=== PATIENT | female | born 1960 | race Caucasian/White ===

== ENCOUNTER 2017-08-29 09:26 | Emergency (ER) | payer BC ==
[2017-08-29 10:48] VITALS: BP 137/89
--- NOTE | 2017-08-29 11:06 | ED ---
Throat Pain/Nasal Congestion - HPI Summary HPI Summary: 56 yr old female with runny nose, cough, sinus congestion sore throat for three days. Denies fever and chills. She has a cough that has started that is dry as well. denies smoking. No other complaints. - History of Current Complaint Chief Complaint: UCGeneralIllness Time Seen by Provider: 08/29/17 10:48 - Allergies/Home Medications Allergies/Adverse Reactions: Allergies Allergy/AdvReac Type Severity Reaction Status Date / Time No Known Allergies Allergy Verified 08/29/17 10:48 Home Medications: Home Medications Cholecalciferol [Vitamin D] 08/29/17 [History] Metoprolol Tartrate TAB* [Lopressor TAB*] 08/29/17 [History] PMH/Surg Hx/FS Hx/Imm Hx - Surgical History Surgery Procedure, Year, and Place: tubaligation Infectious Disease History: No Infectious Disease History: Denies: History Other Infectious Disease, Traveled Outside the [place] in Last 30 Days - Family History Known Family History: Positive: None - Social History Alcohol Use: None Substance Use Type: Reports: None Smoking Status (MU): Never Smoked Tobacco Review of Systems Positive: Sore Throat, Nasal Discharge Positive: Cough All Other Systems Reviewed And Are Negative: Yes Physical Exam Triage Information Reviewed: Yes Vital Signs On Initial Exam: Initial Vitals Temp Pulse Resp BP Pulse Ox 98.2 F 69 18 137/89 99 08/29/17 10:43 08/29/17 10:43 08/29/17 10:43 08/29/17 10:43 08/29/17 10:43 Vital Signs Reviewed: Yes Appearance: Positive: Well-Appearing, No Pain Distress Skin: Positive: Warm, Skin Color Reflects Adequate Perfusion Eyes: Positive: EOMI ENT: Positive: Pharynx normal, Nasal congestion. Negative: TMs normal - cerumen Neck: Positive: Nontender Respiratory/Lung Sounds: Positive: Clear to Auscultation, Breath Sounds Present Cardiovascular: Positive: RRR. Negative: Murmur Abdomen Description: Positive: Nontender Musculoskeletal: Positive: Strength/ROM Intact Neurological: Positive: Sensory/Motor Intact, Alert, Oriented to Person Place, Time, CN Intact II-III Psychiatric: Positive: Normal - [place] Coma Scale Best Eye Response: 4 - Spontaneous Best Motor Response: 6 - Obeys Commands Best Verbal Response: 5 - Oriented Diagnostics - Vital Signs Vital Signs Temp Pulse Resp BP Pulse Ox 08/29/17 10:43 98.2 F 69 18 137/89 99 - Laboratory Lab Statement: Any lab studies that have been ordered have been reviewed, and results considered in the medical decision making process. EENT Course/Dx - Diagnoses Provider Diagnoses: Upper respiratory infection Discharge - Discharge Plan Condition: Good Disposition: HOME Patient Education Materials: Upper Respiratory Infection (ED), Hypertension (ED ) Referrals: Suhail Talavera MD [Primary Care Provider] - 2 Days
== END 2017-08-29 11:21 | disposition home or self-care (01) ==
LOC: UCCORT 09:26
DX: J06.9 Acute upper respiratory infection, unspecified (principal); J02.9 Acute pharyngitis, unspecified
CPT/HCPCS: 87651; 99202; G0463

== ENCOUNTER 2017-08-31 16:33 | Emergency (ER) | payer BC ==
[2017-08-31 19:14] VITALS: BP 144/91
--- NOTE | 2017-08-31 19:18 | UC ---
Eye Complaint HPI - HPI Summary HPI Summary: Pt c/o left eye irritation, purulent discharge, nasal congestion, sinus pressure and cough. eye c/o X 1 day. Nasal congestion, sinus pressure and pain X 1 week. - History of Current Complaint Chief Complaint: UCEye Stated Complaint: EYE COMPLAINT Time Seen by Provider: 08/31/17 19:02 Hx Obtained From: Patient ?: No Onset/Duration: Sudden Onset - eye, Gradual Onset - sinus Severity Initially: Mild Severity Currently: Moderate Character: Dull Associated Signs And Symptoms: Positive: Drainage (Purulent) - Allergies/Home Medications Allergies/Adverse Reactions: Allergies Allergy/AdvReac Type Severity Reaction Status Date / Time No Known Allergies Allergy Verified 08/31/17 19:05 Home Medications: Home Medications Triamcinolone Acetonide (Nasal [Nasal Allergy 24 Hour] 1 spray BEDTIME 08/31/17 [History Confirmed 08/31/17] PMH/Surg Hx/FS Hx/Imm Hx Previously Healthy: Yes - Surgical History Surgical History: Yes Surgery Procedure, Year, and Place: tubal ligation - Family History Known Family History: Positive: Cardiac Disease - Social History Occupation: Employed Full-time Lives: With Family Alcohol Use: None Substance Use Type: None Smoking Status (MU): Never Smoked Tobacco Have You Smoked in the Last Year: No - Immunization History Most Recent Influenza Vaccination: current 2016/2017 Review of Systems Constitutional: Fatigue Skin: Negative Eyes: Drainage - left eye, Eye Redness - left eye ENT: Sinus Congestion, Sinus Pain/Tenderness Respiratory: Cough Cardiovascular: Negative Gastrointestinal: Negative Genitourinary: Negative Motor: Negative Neurovascular: Negative Musculoskeletal: Negative Neurological: Headache Psychological: Negative Is Patient Immunocompromised?: No All Other Systems Reviewed And Are Negative: Yes Physical Exam Triage Information Reviewed: Yes Appearance: Ill-Appearing Vital Signs: Initial Vital Signs Temp 98.4 F 08/31/17 19:07 Pulse 68 08/31/17 19:07 Resp 16 08/31/17 19:07 BP 144/91 08/31/17 19:07 Pulse Ox 99 08/31/17 19:07 Vital Signs Reviewed: Yes Eye Exam: Other Eyes: Positive: Conjunctiva Inflamed - left, Discharge - left eye ENT Exam: Other ENT: Positive: Nasal congestion, Sinus tenderness Dental Exam: Normal Neck exam: Normal Respiratory Exam: Normal Cardiovascular Exam: Normal Musculoskeletal Exam: Normal Neurological Exam: Normal Psychological Exam: Normal Skin Exam: Normal Eye Complaint Course/Dx - Differential Dx/Diagnosis Differential Diagnosis/HQI/PQRI: Conjunctivitis Provider Diagnoses: conjunctivitis left eye. sinusitis Discharge - Discharge Plan Condition: Stable Disposition: HOME Prescriptions: Amoxicillin PO (*) [Amoxicillin 875 MG (*)] 875 mg PO Q12H #20 tab Polymyx/Trimethoprim OPTH* [Polytrim OPHTH*] 2 drop BOTH EYES Q8H #1 btl Pseudoephedrine-Guaifenesin [Mucinex D 60-600 mg] 1 tab PO DAILY #7 tab Patient Education Materials: Sinusitis (ED), Conjunctivitis (ED) Referrals: Suhail Talavera MD [Primary Care Provider] - If Needed
== END 2017-08-31 19:31 | disposition home or self-care (01) ==
LOC: UCCORT 16:33
DX: H10.32 Unspecified acute conjunctivitis, left eye (principal); J32.9 Chronic sinusitis, unspecified
CPT/HCPCS: 99212; G0463

== ENCOUNTER 2018-06-09 10:39 | Emergency (ER) | payer BC ==
--- OUTSIDE RECORDS SUMMARY | 2018-06-09 11:22 | XMS REPORT ---
:1960 Author Organization [facility] Address [address] [place] [address] Care Team Providers Name Role Phone Nicole TabaresaMarie Unavailable Unavailable PROBLEMS ALLERGIES No Known Allergies ENCOUNTERS IMMUNIZATIONS No Known Immunizations SOCIAL HISTORY No smoking Hx information available REASON FOR REFERRAL FUNCTIONAL STATUS PLAN OF CARE VITAL SIGNS MEDICATIONS PROCEDURES No Known procedures RESULTS No Results REASON FOR VISIT Insurance Providers MEDICAL (GENERAL) HISTORY
--- OUTSIDE RECORDS SUMMARY | 2018-06-09 11:22 | XMS REPORT ---
:1960 Author Organization [facility] Address [address] [place] [address] Care Team Providers Name Role Phone Jarad Tabares Unavailable Unavailable PROBLEMS Type Condition ICD9-CM Code [id number] Onset Condition SNOMED Code Code Dates Status Problem Family history of Z80.49 Active 238674332 malignant neoplasm of other genital organs Problem Postmenopausal N95.0 Active 73735868 bleeding Problem Family history of Z80.0 Active [id number] malignant neoplasm of digestive organs ALLERGIES No Information ENCOUNTERS Encounter Location Date Diagnosis [facility] Jul, [place] [id number] [facility] [address] [place] Medical [facility] [id number] [facility] Jun, [place] [id number] [facility] [address] May, [place] [id number] [facility] [address] May, Postmenopausal bleeding [address] [id number] [facility] [address] Feb, Postmenopausal bleeding OBGYN [place] [address] [place] [id number] [facility] [address] [place], Jan, Postmenopausal bleeding Medical [place] [id number] N95.0 and Family history of malignant neoplasm of other genital organs Z80.49 [facility] [address] [facility] 14 Jan, [address] [place] [address] [place] [id number] [place] [facility] [address] 11 Jan, 2018 [place] [id number] [place] [facility] [address] Jan, [place] [id number] [place] [facility] 103 Jan, Postmenopausal bleeding OBGYN [place] [address] [place] [id number] [place] [facility] 103 December, Postmenopausal bleeding OBGYN [address] [id number] [place] [facility] 103 December, Postmenopausal bleeding OBGYN [address] [id number] [place] [facility] 103 December, Postmenopausal bleeding OBGYN [address] [id number] [place] [facility] 103 December, Encounter for gynecological OBGYN [facility] examination (general) [place], [place] [id number] (routine) without abnormal findings Z01.419 ; Family history of malignant neoplasm of digestive organs Z80.0 ; Encounter for screening for malignant neoplasm of colon Z12.11 and Postmenopausal bleeding N95.0 [place] [facility] [address] Oct, OBGYN [place], [place] [id number] [place] [facility] 103 Nov, Encounter for gynecological OBGYN [facility] examination (general) [place], [place] [id number] (routine) without abnormal findings Z01.419 ; Family history of malignant neoplasm of digestive organs Z80.0 ; Encounter for screening mammogram for malignant neoplasm of breast Z12.31 and Encounter for screening for malignant neoplasm of colon Z12.11 [place] [facility] 103 Aug, [place]BG[place], [place] [id number] [place] [facility] 103 Sep, [place] [id number] [facility] 10 Sep, 2015 Encounter for gynecological [facility] examination (general) [place], [place] [id number] (routine) without abnormal findings Z01.419 ; Encounter for screening mammogram for malignant neoplasm of breast Z12.31 ; Encounter for screening for malignant neoplasm of colon Z12.11 ; Family history of malignant neoplasm of digestive organs Z80.0 and Encounter for screening for malignant neoplasm of cervix Z12.4 [place] [facility] 10 Apr, 2015 [place] [id number] [place] [facility] 09 Oct, 2014 Menometrorrhagia 626.2 and [facility] Anemia, iron deficiency, [place], [place] [id number] due to chronic blood loss 280.0 [place] [facility] 103 Jul, Menometrorrhagia 626.2 and [facility] Anemia, iron deficiency, [place], [place] [id number] due to chronic blood loss 280.0 [facility] [address] [place], Jun, [facility] [id number] [place] [facility] 103 Jun, Menometrorrhagia 626.2 and [facility] Anemia, iron deficiency, [place], [place] [id number] due to chronic blood loss 280.0 [place] [facility] 103 Jun, [place] [id number] [place] [facility] 103 Jun, Menometrorrhagia 626.2 and [facility] Anemia, iron deficiency, [place], [place] [id number] due to chronic blood loss 280.0 [place] [facility] 103 Jun, EXCESSIVE MENSTRUATION [facility] 626.2 [place], [place] [id number] [place] [facility] 103 Jun, [place] [id number] [place] [facility] 103 Jun, EXCESSIVE MENSTRUATION OBGYN [facility] 626.2 [place], [place] [id number] [place] [facility] 103 Jun, EXCESSIVE MENSTRUATION OBGYN [facility] 626.2 [place], [place] [id number] [place] [facility] 103 Jun, Menometrorrhagia 626.2 and OBGYN [facility] Leiomyoma of uterus, [place], [place] [id number] unspecified 218.9 [place] [facility] 103 Jun, EXCESSIVE MENSTRUATION OBGYN [facility] 626.2 [place], [place] [id number] [place] [facility] May, [place]BG[place] [id number] [place] [facility] 103 May, ROUTINE SENIOR ASP NET DEVELOPER EXAMINATION OBGYN [facility] V72.31 ; SCREEN MALIG [place], [place] [id number] NEOP-COLON V76.51 ; SCREEN MAMMOGRAM NEC V76.12 ; EXCESSIVE MENSTRUATION 626.2 ; FAMILY HX-GI MALIGNANCY V16.0 and FM HX GENITAL MALIG NOS V16.40 [place] [facility] 103 May, ROUTINE SENIOR ASP NET DEVELOPER EXAMINATION OBGYN [facility] V72.31 and SCREEN [place], [place] [id number] NEOP-COLON V76.51 [place] [facility] 103 May, ROUTINE SENIOR ASP NET DEVELOPER EXAMINATION OBGYN [facility] V72.31 and SCREEN [place], [place] [id number] NEOP-COLON V76.51 [place] [facility] 103 Apr, ROUTINE SENIOR [employer] NET DEVELOPER EXAMINATION OBGYN [facility] V72.31 and Murmur 785.2 [place], [place] [id number] [place] [facility] 103 Mar, ROUTINE SENIOR [employer] NET DEVELOPER EXAMINATION OBGYN [facility] V72.31 [place], [place] [id number] [place] [facility] 103 Feb, ROUTINE SENIOR [employer] DEVELOPER EXAMINATION OBGYN [facility] V72.31 [place], [place] [id number] IMMUNIZATIONS No Known Immunizations SOCIAL HISTORY Never Assessed REASON FOR REFERRAL FUNCTIONAL STATUS PLAN OF CARE VITAL SIGNS MEDICATIONS Unknown Medications PROCEDURES No Known procedures RESULTS No Results REASON FOR VISIT Schedule TLH/BS/cysto. No me clearance. Insurance Providers [facility] Health Member Patient Patient Patient Patient Patient Subscriber Subscriber Subscriber Group Insurance Plan Plan Plan Plan ID Relationship Address Phone Name Date of ID Name Date of No Type Insurance Insurance Insurance Coverage to Subscriber Address Phone Name Dates [employer] [phone] [employer] Shelly 1960 [id number] [place] [address] Lifetime [phone] Lifetime self Shelly 1960 [id number] Benefit Tobias 48 Benefit [address] 6 [employer] [place] [employer] [phone] [employer] [phone] [employer] self Shelly [id number] Blue [id number] 89 Blue [address] 6 Cross/Blue [place] Cross/Blue Shield [id number] Shield MEDICAL (GENERAL) HISTORY Type Description Date Medical History Irregular heart beat Medical History Allergies Surgical History BTL 1993 Surgical History Hysteroscopy/D&C: EM polyps 07-10-14 Surgical History colonoscopy 2012 Surgical History hysteroscopy/D&C/ 02/01/18 Hospitalization History Child
[2018-06-09 11:33] VITALS: BP 123/87
--- NOTE | 2018-06-09 11:50 | UC ---
General HPI - HPI Summary HPI Summary: accidently hit self in back of L hand with a hammer 4 days ago. c/o ongoing pain and bruising.. - History of Current Complaint Chief Complaint: UCUpperExtremity Stated Complaint: LT HAND INJURY Time Seen by Provider: 06/09/18 11:35 Hx Obtained From: Patient Onset/Duration: Sudden Onset Pain Intensity: 4 Associated Signs & Symptoms: Negative: Fever - Allergy/Home Medications Allergies/Adverse Reactions: Allergies Allergy/AdvReac Type Severity Reaction Status Date / Time No Known Allergies Allergy Verified 06/09/18 11:26 Home Medications: Home Medications Cholecalciferol TAB* [Vitamin D TAB*] 1,000 unit PO DAILY 06/09/18 [History Confirmed 06/09/18] Fluticasone NASAL SPRAY 50MCG* [Flonase NASAL SPRAY 50MCG*] 2 spray BOTH NARES DAILY 06/09/18 [History Confirmed 06/09/18] LevoCETirizine TAB (NF) [Xyzal TAB (NF)] 5 mg PO DAILY 06/09/18 [History Confirmed 06/09/18] PMH/Surg Hx/FS Hx/Imm Hx - Additional Past Medical History Additional PMH: white coat htn Other Cardiovascular History: TACHYCARDIA - Surgical History Surgical History: Yes Surgery Procedure, Year, and Place: tubal ligation. jaw. D&C - Family History Known Family History: Positive: None, Cardiac Disease - Social History Occupation: Employed Full-time Alcohol Use: None Substance Use Type: None Smoking Status (MU): Never Smoked Tobacco Have You Smoked in the Last Year: No - Immunization History Most Recent Influenza Vaccination: current Vaccination Up to Date: Yes Review of Systems Constitutional: Negative Skin: Negative Eyes: Negative ENT: Negative Respiratory: Negative Cardiovascular: Negative Gastrointestinal: Negative Genitourinary: Negative Motor: Negative Neurovascular: Negative Musculoskeletal: Other: - L hand pain Neurological: Negative Psychological: Negative Is Patient Immunocompromised?: No All Other Systems Reviewed And Are Negative: Yes Physical Exam Triage Information Reviewed: Yes Appearance: Well-Appearing Vital Signs: Initial Vital Signs Temp 97.8 F 06/09/18 11:29 Pulse 69 06/09/18 11:29 Resp 15 06/09/18 11:29 BP 123/87 06/09/18 11:29 Pulse Ox 97 06/09/18 11:29 Vital Signs Reviewed: Yes Eyes: Positive: Conjunctiva Clear ENT: Positive: Normal ENT inspection Neck: Positive: Supple, Nontender, No Lymphadenopathy Respiratory: Positive: Lungs clear, Normal breath sounds Cardiovascular: Positive: RRR, No Murmur Abdomen Description: Positive: Nontender, No Organomegaly, Soft Bowel Sounds: Positive: Present Musculoskeletal: Positive: Other: - L hand: Mild dorsal swelling and brown brusing. Tender base 1-2nd metacarpals. s/v/m is intact. Neurological: Positive: Alert Psychological: Positive: Age Appropriate Behavior Skin Exam: Normal Diagnostics - Radiology No standard instances Radiology Interpretation Completed By: Radiologist - L HAND=OSTEOARTHRITIS. NO ACUTE OSSEOUS INJURY. IF SYMPTOMS PERSIST, RECOMMEND REPEAT IMAGING. Course/Dx - Course Course Of Treatment: NO CONCERN FOR INFECTION, NO FX ON XRAY - Differential Dx - Multi-Symptom Provider Diagnoses: CONTUSION L HAND Discharge - Sign-Out/Discharge Documenting (check all that apply): Patient Departure All imaging exams completed and their final reports reviewed: Yes - Discharge Plan Condition: Stable Disposition: HOME Patient Education Materials: Contusion in Adults (ED) Referrals: Suhail Talavera MD [Primary Care Provider] - Additional Instructions: FOLLOW UP IN 7 DAYS IF NOT BETTER OR SOONER IF WORSE. - Billing Disposition and Condition Condition: STABLE Disposition: Home - Attestation Statements Provider Attestation: Per institutional requirements, I have reviewed the chart, however, I was not consulted specifically or made aware of this patient by the midlevel provider. I did not personally evaluate, interact with , or disposition this patient.
--- NOTE | 2018-06-09 11:58 | RAD ---
HISTORY: CRUSH INJURY COMPARISONS: None VIEWS: 4 , Frontal, lateral, and oblique views of the left hand FINDINGS: BONE DENSITY: Normal. BONES: There is no displaced fracture. JOINTS: There is advanced osteoarthritis of the first CMC joint. ALIGNMENT: There is no dislocation. SOFT TISSUES: Unremarkable. OTHER FINDINGS: None. IMPRESSION: OSTEOARTHRITIS. NO ACUTE OSSEOUS INJURY. IF SYMPTOMS PERSIST, RECOMMEND REPEAT IMAGING.
== END 2018-06-09 12:22 | disposition home or self-care (01) ==
LOC: UCCORT 10:39
DX: S60.222A Contusion of left hand, initial encounter (principal); M19.042 Primary osteoarthritis, left hand; R00.0 Tachycardia, unspecified; W22.8XXA Striking against or struck by other objects, initial encounter; Y92.9 Unspecified place or not applicable
CPT/HCPCS: 99211; G0463